=== PATIENT | female | born 1970 | race Caucasian/White ===

== ENCOUNTER 2017-07-19 15:08 | Emergency (ER) | payer OTHER ==
[~2017-07-19] VITALS: Ht 157.5 cm; Wt 108.0 kg
[2017-07-19 15:28] VITALS: BP 148/84
--- NOTE | 2017-07-19 15:38 | NUR ---
PT TAKEN TO BED 11.
--- NOTE | 2017-07-19 15:45 | NUR ---
PATIENT PRESENTS TO ED WITH HEADACHE AND DIZZINESS X1 WEEK; PT REPORTS HEADACHE WILL COME AND GO; PT REPORTS HAVING A SYNCOPAL EPISODE AT WORK; PT STATES "I JUST FEEL DRUNK AND NOT MYSELF." HX NONE; DENIES N/V/D; SKIN IS PINK/WARM/DRY; AAOX4 WITH EVEN AND STEADY GAIT; LUNGS CLEAR BL; HR EVEN AND REGULAR; PT DENIES ANY FEVER, CP, SOB, OR COUGH AT THIS TIME; PATIENT STATES PAIN OF 8/10 AT THIS TIME; VSS; PATIENT POSITIONED FOR COMFORT; HOB ELEVATED; BEDRAILS UP X2; BED DOWN. ER MD MADE AWARE OF PT STATUS.
[2017-07-19 16:51] LABS: BASOPHILS # (AUTO) 0.2 K/uL (0.00-0.22); EOSINOPHILS # (AUTO) 0.3 K/uL (0-0.4); HEMATOCRIT 36.7 % (36-48); HEMOGLOBIN 12.5 g/dL (12.0-16.0); LYMPHOCYTES # (AUTO) 2.7 K/uL (2.5-16.5); MEAN CORPUSCULAR HEMOGLOBIN 29 pg (27-31); MEAN CORPUSCULAR HGB CONC 34 g/dL (33-37); MEAN CORPUSCULAR VOLUME 85 fL (80-94); MONOCYTES # (AUTO) 0.7 K/uL (0.8-1.0); NEUTROPHILS # (AUTO) 3.9 K/uL (1.8-7.7); PLATELET COUNT (AUTO) 217 K/uL (140-450); RED BLOOD CELL COUNT(AUTO) 4.33 MIL/uL (4.20-5.40); RED CELL DISTRIBUTION WIDTH 12.9 % (11.6-13.7); WHITE BLOOD COUNT (AUTO) 7.8 K/uL (4.8-10.8)
[2017-07-19] MEDS: PROCHLORPERAZINE 10 MG/2 ML VIAL IVP ONE (17:08)
--- NOTE | 2017-07-19 17:09 | NUR ---
PT TAKEN OFF THE UNIT FOR CT SCAN VIA WHEEL CHAIR
[2017-07-19 17:13] LABS: ANION GAP 10.7 (8-16); CARBON DIOXIDE 24.8 mmol/L (21-32); POTASSIUM 3.5 mmol/L (3.5-5.1)
[2017-07-19 17:14] LABS: CREATININE 0.6 mg/dL (0.6-1.3)
[2017-07-19 17:16] LABS: TOTAL BILIRUBIN 0.5 mg/dL (0.0-1.0)
[2017-07-19 17:17] LABS: ALBUMIN 3.2 g/dL (3.4-5.0)
[2017-07-19] MEDS: NACL 0.9% 1,000 ML IV ONE (17:20)
[2017-07-19] MEDS: KETOROLAC 30 MG/ML VIAL IVP ONE (17:52)
[2017-07-19 17:57] LABS: PROTHROMBIN TIME 10.3 secs (10.8-13.4)
[2017-07-19 18:45] VITALS: BP 136/76
--- NOTE | 2017-07-19 18:45 | NUR ---
Patient discharged with v/s stable. Written and verbal after care instructions given and explained. Patient verbalized understanding. Ambulatory with steady gait. All questions addressed prior to discharge. Advised to follow up with PMD.
== END 2017-07-19 18:45 | disposition home or self-care (01) ==
LOC: MED 15:08
DX: R55 Syncope and collapse (principal); R51 Headache; Z90.49 Acquired absence of other specified parts of digestive tract
CPT/HCPCS: 36415; 70450; 71045; 80053; 81002; 81025; 82948; 84484; 85025; 85610; 85730; 93005; 96361; 96374; 96375; 99285; J0780; J1885; J7030; Q0092